=== PATIENT | male | born 1955 | race Caucasian/White ===

== ENCOUNTER 2017-05-05 07:41 | Emergency (ER) | payer BC, OTHER ==
[2017-05-05] MEDS ORDERED: Sodium Chloride 0.9% 10 ML Syringe FLUSH PRN (07:58)
--- NOTE | 2017-05-05 08:12 | EDM.PDOC ---
ED HPI GENERAL MEDICAL PROBLEM - General Chief Complaint: Neurological Problem Stated Complaint: FORGETTING THINGS Time Seen by Provider: 05/05/17 07:54 Source of Information: Reports: Patient, RN, RN Notes Reviewed, Other (co-worker ) History Limitations: Reports: Altered Mental Status - History of Present Illness INITIAL COMMENTS - FREE TEXT/NARRATIVE: Pt presents to the ER with a friend/co-worker. Friend states that he noticed the patient become very confused around 0715. He states he has been with him since 0600 and he was acting normally at that time. At 0715 he began acting very confused. Pt states "there is something wrong with me". Friend states he is unsure of past medical history but he states he does know that the patient had an accident in the past and has a bad back, has had skin cancer, and the friend feels he may have had these "episodes" in the past. Patient states he does drink alcohol and had "a few beers last night". Pt denies any drug use or smoking. Patient denies any pain at this time. Onset: Today, Sudden Onset Date: 05/05/17 Onset Time: 07:15 - Related Data Allergies Allergy/AdvReac Type Severity Reaction Status Date / Time No Known Allergies Allergy Verified 05/05/17 07:48 Home Meds: Home Meds . [No Known Home Meds] 01/20/14 [History] Past Medical History HEENT History: Reports: Impaired Vision Cardiovascular History: Reports: None Respiratory History: Reports: None Gastrointestinal History: Reports: Bowel Obstruction Genitourinary History: Reports: None Musculoskeletal History: Reports: Back Pain, Chronic Neurological History: Reports: Other (See Below) Other Neuro History: episodes of confusion Psychiatric History: Reports: None Endocrine/Metabolic History: Reports: None Hematologic History: Reports: None Immunologic History: Reports: None Oncologic (Cancer) History: Reports: None Dermatologic History: Reports: None Social & Family History - Tobacco Use Smoking Status *Q: Never Smoker Second Hand Smoke Exposure: No - Alcohol Use Days Per Week of Alcohol Use: 0 Date of Last Drink: 05/04/17 - Recreational Drug Use Recreational Drug Use: No - Living Situation & Occupation Living situation: Reports: with Family Occupation: Employed ED ROS GENERAL - Review of Systems Review Of Systems: ROS reveals no pertinent complaints other than HPI. ED EXAM, NEURO - Physical Exam Exam: See Below Exam Limited By: Altered Mental Status General Appearance: Alert, Anxious, Thin Eye Exam: Bilateral Eye: EOMI, PERRL (3 brisk) Ears: Normal External Exam, Hearing Grossly Normal Nose: Normal Inspection Throat/Mouth: Normal Inspection, Normal Voice, No Airway Compromise Head Exam: Atraumatic, Normocephalic Neck: Normal Inspection, Supple, Non-Tender, Full Range of Motion Respiratory/Chest: No Respiratory Distress, Lungs Clear, Normal Breath Sounds, No Accessory Muscle Use, Chest Non-Tender Cardiovascular: Normal Peripheral Pulses, No Murmur, No Rub, Irregularly Irregular GI/Abdominal: Normal Bowel Sounds, Soft, Non-Tender, No Organomegaly, No Distention, No Abnormal Bruit, No Mass (Male) Exam: Deferred Rectal (Males) Exam: Deferred Neurological: Alert. No: Oriented x 3 Back Exam: Normal Inspection, Full Range of Motion Extremities: Normal Inspection, Normal Range of Motion, Non-Tender, No Pedal Edema, Normal Capillary Refill Psychiatric: Anxious Skin Exam: Warm, Dry, Intact, Normal Color, No Rash EKG INTERPRETATION EKG Date: 05/05/17 Time: 08:13 Rhythm: NSR Rate (Beats/Min): 68 [place]: Normal P-Wave: Present QRS: Normal ST-T: Normal QT: Normal Comparison: NA - No Prior EKG EKG Interpretation Comments: Sinus Rhythm with multiple PVC's Course - Vital Signs Last Recorded V/S: Last Vital Signs Temp 99.2 F 05/05/17 07:50 Pulse 78 05/05/17 07:50 Resp 18 05/05/17 07:50 BP 162/96 H 05/05/17 07:50 Pulse Ox 100 05/05/17 07:50 - Orders/Labs/Meds Orders: Active Orders 24 hr Category Date Time Status EKG Documentation Completion [RC] STAT Care 05/05/17 07:59 Active Peripheral IV Care [RC] . DIRECTED Care 05/05/17 08:00 Active CULTURE BLOOD [BC] Stat Lab 05/05/17 08:01 Ordered CULTURE BLOOD [BC] Stat Lab 05/05/17 08:09 Received Sodium Chloride 0.9% [Saline Flush] Med 05/05/17 07:58 Active 10 ml FLUSH ASDIRECTED PRN Blood Culture x2 Reflex Set [OM.PC] Stat Oth 05/05/17 08:01 Ordered Peripheral IV Insertion Adult [OM.PC] Stat Oth 05/05/17 07:58 Ordered Medication Orders Sodium Chloride (Saline Flush) 10 ml FLUSH ASDIRECTED PRN PRN Reason: Keep Vein Open Last Admin: 05/05/17 08:11 Dose: 10 ml Labs: Laboratory Tests 05/05/17 05/05/17 05/05/17 Range/Units 08:09 08:09 08:09 WBC 10.5 H (5.0-10.0) 10^3/uL RBC 4.41 L (4.6-6.2) 10^6/uL Hgb 14.0 (14.0-18.0) g/dL Hct 40.7 (40.0-54.0) % MCV 92.3 (80-100) fL MCH 31.7 (27.0-34.0) pg MCHC 34.4 (33.0-35.0) g/dL Plt Count 199 (150-450) 10^3/uL Neut % (Auto) 58.1 (42.2-75.2) % Lymph % (Auto) 31.1 (20.5-50.1) % [place] % (Auto) 8.0 (2-8) % Eos % (Auto) 2.3 (1.0-3.0) % Baso % (Auto) 0.5 (0.0-1.0) % Sodium 136 (135-145) mmol/L Potassium 3.9 (3.6-5.0) mmol/L Chloride 100 L (101-111) mmol/L Carbon Dioxide 26.0 (21.0-31.0) mmol/L Anion Gap 13.9 BUN 9 (7-18) mg/dL Creatinine 0.5 L (0.6-1.3) mg/dL Est Cr Clr Drug Dosing 153.09 mL/min Estimated GFR (MDRD) > 60 BUN/Creatinine Ratio 18.00 Glucose 93 (74-105) mg/dL Lactic Acid 1.4 (0.5-2.2) mmol/L Calcium 9.4 (8.4-10.2) mg/dl Magnesium 1.6 L (1.8-2.5) mg/dL Total Bilirubin 1.0 (0.2-1.0) mg/dL AST 39 (10-42) IU/L ALT 19 (10-60) IU/L Alkaline Phosphatase 32 L (42-121) IU/L Troponin I < 0.02 (0.00-0.02) ng/ml Total Protein 7.8 (6.7-8.2) g/dl Albumin 4.1 (3.2-5.5) g/dl Globulin 3.7 Albumin/Globulin Ratio 1.11 Urine Color (YELLOW) Urine Appearance (CLEAR) Urine pH (5.0-9.0) Ur Specific [place] (1.005-1.030) Urine Protein (NEGATIVE) Urine Glucose (UA) (NEGATIVE) Urine Ketones (NEGATIVE) Urine Occult Blood (NEGATIVE) Urine Nitrite (NEGATIVE) Urine Bilirubin (NEGATIVE) Urine Urobilinogen (0.2-1.0) mg/dL Ur Leukocyte Esterase (NEGATIVE) Urine RBC /HPF Urine WBC (0-5/HPF) /HPF Ur Epithelial Cells /HPF Urine Bacteria (0-FEW/HPF) /HPF Urine Mucus /LPF Urine Opiates Screen (NEGATIVE) Ur Oxycodone Screen (NEGATIVE) Urine Methadone Screen (NEGATIVE) Ur Barbiturates Screen (NEGATIVE) U Tricyclic Antidepress (NEGATIVE) Ur Phencyclidine Scrn (NEGATIVE) Ur Amphetamine Screen (NEGATIVE) U Methamphetamines Scrn (NEGATIVE) Urine MDMA Screen (NEGATIVE) U Benzodiazepines Scrn (NEGATIVE) Urine Cocaine Screen (NEGATIVE) U Marijuana (THC) Screen (NEGATIVE) Ethyl Alcohol 7 mg/dL 05/05/17 05/05/17 Range/Units 08:28 08:28 WBC (5.0-10.0) 10^3/uL RBC (4.6-6.2) 10^6/uL Hgb (14.0-18.0) g/dL Hct (40.0-54.0) % MCV (80-100) fL MCH (27.0-34.0) pg MCHC (33.0-35.0) g/dL Plt Count (150-450) 10^3/uL Neut % (Auto) (42.2-75.2) % Lymph % (Auto) (20.5-50.1) % [place] % (Auto) (2-8) % Eos % (Auto) (1.0-3.0) % Baso % (Auto) (0.0-1.0) % Sodium (135-145) mmol/L Potassium (3.6-5.0) mmol/L Chloride (101-111) mmol/L Carbon Dioxide (21.0-31.0) mmol/L Anion Gap BUN (7-18) mg/dL Creatinine (0.6-1.3) mg/dL Est Cr Clr Drug Dosing mL/min Estimated GFR (MDRD) BUN/Creatinine Ratio Glucose (74-105) mg/dL Lactic Acid (0.5-2.2) mmol/L Calcium (8.4-10.2) mg/dl Magnesium (1.8-2.5) mg/dL Total Bilirubin (0.2-1.0) mg/dL AST (10-42) IU/L ALT (10-60) IU/L Alkaline Phosphatase (42-121) IU/L Troponin I (0.00-0.02) ng/ml Total Protein (6.7-8.2) g/dl Albumin (3.2-5.5) g/dl Globulin Albumin/Globulin Ratio Urine Color Yellow (YELLOW) Urine Appearance Clear (CLEAR) Urine pH 7.0 (5.0-9.0) Ur Specific [place] 1.020 (1.005-1.030) Urine Protein Negative (NEGATIVE) Urine Glucose (UA) Negative (NEGATIVE) Urine Ketones Trace H (NEGATIVE) Urine Occult Blood Trace-intact H (NEGATIVE) Urine Nitrite Negative (NEGATIVE) Urine Bilirubin Negative (NEGATIVE) Urine Urobilinogen 0.2 (0.2-1.0) mg/dL Ur Leukocyte Esterase Negative (NEGATIVE) Urine RBC 0-5 /HPF Urine WBC 0-5 (0-5/HPF) /HPF Ur Epithelial Cells Rare /HPF Urine Bacteria Rare (0-FEW/HPF) /HPF Urine Mucus Few H /LPF Urine Opiates Screen Negative (NEGATIVE) Ur Oxycodone Screen Negative (NEGATIVE) Urine Methadone Screen Negative (NEGATIVE) Ur Barbiturates Screen Negative (NEGATIVE) U Tricyclic Antidepress Negative (NEGATIVE) Ur Phencyclidine Scrn Negative (NEGATIVE) Ur Amphetamine Screen Negative (NEGATIVE) U Methamphetamines Scrn Negative (NEGATIVE) Urine MDMA Screen Negative (NEGATIVE) U Benzodiazepines Scrn Negative (NEGATIVE) Urine Cocaine Screen Negative (NEGATIVE) U Marijuana (THC) Screen Negative (NEGATIVE) Ethyl Alcohol mg/dL Meds: Medications Generic Name Dose Route Start Last Admin Trade Name Freq PRN Reason Stop Dose Admin Sodium Chloride 10 ml 05/05/17 07:58 05/05/17 08:11 Saline Flush FLUSH 10 ml ASDIRECTED PRN Administration Keep Vein Open - Radiology Interpretation Free Text/Narrative:: Head CT w/o contrast: Atrophy and microvascular disease. No evidence of acute intracranial abnormality. No evidence of acute infarction, hemorrhage, or mass. See rad report - Re-Assessments/Exams Free Text/Narrative Re-Assessment/Exam: 05/05/17 08:27 0827 [facility], Dr. Cabrera called to state that there was nothing acute seen on the head CT. 05/05/17 09:04 0849 Discussed Pt case with Dr. Dykes, Neurology at [facility] in [place]. She states this does not sound "stroke like" but that the patient could be further evaluated and an MRI would be appropriate. She states we could transfer the patient to at this time. [id number] Dr. Davis, hospitalist at [facility] in [place] has agreed to accept the patient to be transferred. Departure - Departure Time of Disposition: 09:06 Disposition: DC/Tfer to [facility] 02 Condition: Fair Clinical Impression: Confusion - Discharge Information Forms: ED Department Discharge, Interfacility Transfer EMTALA - My Orders Last 24 Hours: My Active Orders 05/05/17 07:58 Sodium Chloride 0.9% [Saline Flush] 10 ml FLUSH ASDIRECTED PRN Peripheral IV Insertion Adult [OM.PC] Stat 05/05/17 07:59 EKG Documentation Completion [RC] STAT 05/05/17 08:00 Peripheral IV Care [RC] . DIRECTED 05/05/17 08:01 CULTURE BLOOD [BC] Stat Blood Culture x2 Reflex Set [OM.PC] Stat 05/05/17 08:09 CULTURE BLOOD [BC] Stat - Assessment/Plan Last 24 Hours: My Active Orders 05/05/17 07:58 Sodium Chloride 0.9% [Saline Flush] 10 ml FLUSH ASDIRECTED PRN Peripheral IV Insertion Adult [OM.PC] Stat 05/05/17 07:59 EKG Documentation Completion [RC] STAT 05/05/17 08:00 Peripheral IV Care [RC] . DIRECTED 05/05/17 08:01 CULTURE BLOOD [BC] Stat Blood Culture x2 Reflex Set [OM.PC] Stat 05/05/17 08:09 CULTURE BLOOD [BC] Stat
[2017-05-05 08:36] LABS: CHLORIDE,CL 100 mmol/L (101-111); SODIUM,NA 136 mmol/L (135-145)
--- NOTE | 2017-05-06 17:17 | EKG ---
05/05/2017 - JAMES SHAFFER - TIME: 8:13 a.m. FINDINGS: EKG shows normal sinus rhythm and multiple ventricular premature complexes. [facility] /[id number]
== END 2017-05-05 09:40 ==
LOC: DL.ED 08:45
DX: R41.0 Disorientation, unspecified (principal)
CPT/HCPCS: 36415; 70450; 80053; 80305; 81001; 83605; 83735; 84484; 85025; 87040; 93005; 99285; G0480; J7050

== ENCOUNTER 2022-05-30 07:53 | Day surgery (SDC) | payer MEDICAID ==
[~2022-05-30 07:53] MED LIST: Proparacaine 0.5% Ophth Soln 15 ML Bottle ONE
[2022-05-30] MEDS ORDERED: Moxifloxacin 0.5% Ophth Soln 3 ML Bottle EYERT ONE (08:00)
[2022-05-30] MEDS ORDERED: Acetaminophen 325 MG Tab PO PRN (08:00)
[2022-05-30] MEDS ORDERED: Cataract Ophth Solution EYERT ONE (08:00)
[2022-05-30] MEDS ORDERED: Proparacaine 0.5% Ophth Soln 15 ML Bottle EYERT ONE ×2 (08:00→09:36)
[2022-05-30] MEDS ORDERED: Sodium Chloride 0.9% 10 ML Syringe FLUSH PRN (08:00)
[2022-05-30] MEDS ORDERED: Timolol Maleate 0.5% Ophth Soln 5 ML Bottle EYERT ONE (08:00)
[2022-05-30] MEDS ORDERED: Tropicamide 1% Ophth Soln 15 ML Bottle EYERT ONE (08:00)
[2022-05-30] MEDS ORDERED: Ondansetron 4 MG/2 ML SDV IVPUSH PRN (08:00)
[2022-05-30] MEDS ORDERED: Acetaminophen/Codeine 300-30 MG Tab PO PRN (08:00)
[2022-05-30] MEDS ORDERED: Povidone-Iodine 5% Sterile Ophth Soln 30 ML Bottle EYERT ONE ×2 (08:00→09:36)
[2022-05-30] MEDS ORDERED: Phenylephrine 10% Ophth Soln 5 ML Bot EYERT PRN (08:00)
[2022-05-30] MEDS ORDERED: Diclofenac Sodium 0.1% Ophth Soln 5 ML Bottle EYERT ONE (09:37)
[2022-05-30] MEDS ORDERED: Dexamethasone/Neomycin/Polymyxin B Ophth Oint 3.5 GM Tube EYERT ONE (09:37)
[2022-05-30] MEDS ORDERED: Apraclonidine 0.5% Ophth Soln 5 ML Bot EYERT ONE (09:37)
[2022-05-30] MEDS ORDERED: Vancomycin 500 MG SDV EYERT ONE (09:38)
[2022-05-30] MEDS ORDERED: Lidocaine 1% 30 ML SDV ONE (09:38)
[2022-05-30] MEDS ORDERED: Balanced Salt Solution Ophth Irrig 500 ML Bottle IOCULAR ONE (09:38)
[2022-05-30] MEDS ORDERED: Chondroitin Sulfate/Hyaluronate Sodium Ophth Inj 0.75 ML Syringe EYERT ONE (09:39)
[2022-05-30] MEDS ORDERED: Dexamethasone 4 MG/ML SDV IOCULAR ONE (09:44)
== END 2022-05-30 10:35 | disposition home or self-care (01) ==
LOC: DL.SDS 07:53
PROVIDERS: ATTEND Ophthalmology
DX: H25.811 Combined forms of age-related cataract, right eye (principal); F10.10 Alcohol abuse, uncomplicated; M51.36 Other intervertebral disc degeneration, lumbar region
CPT/HCPCS: 00142; A9270-GY; J1100; J3370; J3490; V2632

== ENCOUNTER 2022-08-21 17:22 | Emergency (ER) | payer MEDICAID ==
[2022-08-21] MEDS: methylPREDNISolone Sodium Succinate 125 MG/2 ML SDV IM ONE (19:02)
== END 2022-08-21 19:04 | disposition home or self-care (01) ==
LOC: DL.ED 17:22
DX: L20.9 Atopic dermatitis, unspecified (principal); I10 Essential (primary) hypertension; F17.210 Nicotine dependence, cigarettes, uncomplicated
CPT/HCPCS: 96372; 99282; J2930